=== PATIENT | male | born 1935 | race Caucasian/White ===

== ENCOUNTER 2018-04-03 14:21 | Emergency (ER) | payer OTHER ==
[~2018-04-03] VITALS: Ht 177.8 cm; Wt 76.7 kg
[~2018-04-03 14:21] MED LIST: ADULT LOW DOSE81 M1 PO; ATORVASTATIN TAB 80M; CIPRO500 MG PO; CYANOCOBALAM1000 MCG PO; GEMFIBROZIL600 MG PO; LIPITOR80 MG PO; LISINOPRIL20 MG PO; Lomotil,Lonox PO; METOPROLOL SUCC50 MG PO; NEXIUM40 MG PO; TAMSULOSIN HCL0.4 MG PO; TYLENOL EXTRA500 MG PO; ZETIA10 MG PO
[2018-04-03 15:59] LABS: APPEARANCE CLEAR ((CLEAR)); BILIRUBIN NEGATIVE; BLOOD NEGATIVE; COLOR YELLOW ((YELLOW)); GLUCOSE (STRIP) NEGATIVE; KETONES NEGATIVE; LEUKOCYTES NEGATIVE; NITRITE NEGATIVE; PROTEIN (STRIP) 30; UCUL ADDED? NO
[2018-04-03 16:10] LABS: HEMATOCRIT 34.3 % (38.0-50.0); HEMOGLOBIN 10.8 G/DL (12.5-16.6); MCH 22.1 PG (29.0-34.0); MCHC 31.5 G/DL (30.0-36.0); MCV 70.3 FL (86-99); PLATELET COUNT 221 K/uL (156-360); RBC DIS.WIDTH-CV 16.9 % (11.8-14.6); RBC DIS.WIDTH-SD 42.5 % (39-53); RED BLOOD COUNT 4.88 M/uL (4.00-5.50); WHITE BLOOD COUNT 7.2 K/uL (4.1-10.2)
[2018-04-03 16:14] LABS: CHLORIDE 109 mEq/L (99-109); POTASSIUM 3.6 mEq/L (3.7-5.4); SODIUM 140 mEq/L (136-147)
[2018-04-03 16:16] LABS: GLUCOSE 132 mg/dL (70-99)
[2018-04-03 16:20] LABS: GFR ESTIMATE (CALCULATED) > 59 mL/min/ (58.99-99999)
[2018-04-03 16:21] LABS: UREA NITROGEN (BUN) 16 mg/dL (9-23)
[2018-04-03 18:10] VITALS: BP 148/64
== END 2018-04-03 18:12 | disposition home or self-care (01) ==
LOC: EME 14:21
PROVIDERS: Emergency Medicine Emergency Medical Services
PROC: 0T9B70Z Drainage of Bladder with Drainage Device, Via Natural or Artificial Opening (ICD-10-PCS; principal; 2018-04-03)
DX: N40.1 Benign prostatic hyperplasia with lower urinary tract symptoms (principal); R33.8 Other retention of urine; I25.2 Old myocardial infarction; I10 Essential (primary) hypertension; E78.5 Hyperlipidemia, unspecified; K21.9 Gastro-esophageal reflux disease without esophagitis; I25.10 Atherosclerotic heart disease of native coronary artery without angina pectoris; Z95.1 Presence of aortocoronary bypass graft; F17.200 Nicotine dependence, unspecified, uncomplicated
CPT/HCPCS: 80048; 81003; 85027; 99281; 99284